=== PATIENT | female | born 1995 | race Caucasian/White ===

== ENCOUNTER 2023-01-13 09:44 | Day surgery (SDC) | payer BC ==
[2023-01-11 10:46] VITALS: BMI 38.0
[~2023-01-13 09:44] MED LIST: LACTATED RINGERS 1,000 ML IV SCH
[2023-01-13 10:12] VITALS: RESP 16; TEMP 96.8
[2023-01-13] MEDS ORDERED: PROPOFOL 10 MG/ML 20 ML VIAL IV ONE (10:45)
--- NOTE | 2023-01-13 10:56 | P.PCN ---
Date of Procedure: 01/13/23 Procedure(s) Performed: BRIEF HISTORY: Patient is a 27-year-old, pleasant, white female scheduled for an upper endoscopy as a part of evaluation of chronic epigastric pain persisted with nausea for the last 1 year duration. She has been on Protonix 40 mg daily as well as Carafate with no help. Recently was started on dicyclomine and so far has not noticed any change in his symptoms. She isn't scheduled for an upper endoscopy to evaluate for. PROCEDURE PERFORMED: Esophagogastroduodenoscopy with biopsy. PREOPERATIVE DIAGNOSIS: Chronic epigastric pain. IV sedation per anesthesia. PROCEDURE: After informed consent was obtained, the patient was brought into the endoscopy unit. IV sedation was administered by Anesthesia under continuous monitoring. Initially the Olympus GIF-140 video endoscope was inserted into the mouth. Esophagus intubated without any difficulty. It was gradually advanced into the stomach and duodenum and carefully examined. The bulb and the second part of the duodenum appeared normal. Biopsies were done from the duodenum to rule out celiac disease The scope at this time was withdrawn to the stomach, adequately insufflated with air, and upon careful examination, mucosa of the antrum, had linear areas of erythema with scattered erosions consistent with gastritis and biopsies were done from this area. Mucosa of the body, cardia and the fundus appeared normal. The scope was then withdrawn into the esophagus. The GE junction was located at 39 cm from the incisors. The esophagus appeared normal. There were no erosions or ulcerations seen, biopsies were done from the distal esophagus and the patient tolerated the procedure well. IMPRESSION: 1. Linear areas of erythema in the antrum consistent with mild antral gastritis . 2. No evidence of esophagitis or peptic ulcer disease. RECOMMENDATIONS: The findings of this examination were discussed with the indio nichols as well as a family. She was advised to continue with her current medications. Follow with the biopsy results. She'll be seen in office in 6 weeks.
[2023-01-13 11:26] VITALS: BP 133/88; PULSE 81
== END 2023-01-13 11:50 | disposition home or self-care (01) ==
LOC: ORWHC2ENDO 09:44
PROVIDERS: ATTEND Internal Medicine Gastroenterology
DX: K29.50 Unspecified chronic gastritis without bleeding (principal); K31.89 Other diseases of stomach and duodenum; K21.00 Gastro-esophageal reflux disease with esophagitis, without bleeding; F12.90 Cannabis use, unspecified, uncomplicated; Z79.899 Other long term (current) drug therapy; Z88.8 Allergy status to other drugs, medicaments and biological substances
CPT/HCPCS: 81025; 88305; 43239; J2704